=== PATIENT | female | born 1945 | race Caucasian/White ===

== ENCOUNTER → 2020-10-12 09:34 | Outpatient (CLI) | payer MEDICARE, BC, SELFPAY ==
--- NOTE | 2020-10-12 09:42 | XR_ITS ---
PROCEDURE: XR KNEE RT 4V CLINICAL INDICATION: RT knee Pain COMPARISON: No exams were available for comparison FINDINGS: Mild osteoarthritic changes are present at the medial and lateral compartment. There is mild spurring of the tibial spines. There are moderate osteoarthritic changes at the patellofemoral joint. There may be a small suprapatellar effusion. There are 3 calcific densities overlying the proximal tibia slightly medial and are suspect for small loose bodies but could be bone islands in the proximal tibia. IMPRESSION: Osteoarthritic changes as described above. Possible loose bodies overlying the proximal tibial region Dictated by: Roberto Cummins MD 10/12/2020 12:05 Roberto Cummins MD in [place] 10/12/2020 12:05
== END ==
PROVIDERS: PCP Internal Medicine Adolescent Medicine; Visit Provider Orthopaedic Surgery
DX: M25.561 Pain in right knee (principal)
CPT/HCPCS: 73564

== ENCOUNTER → 2020-12-06 10:14 | Outpatient (CLI) | payer MEDICARE, BC, SELFPAY ==
[2020-12-06 10:46] LABS: Basophils % 0.7 % (0.1-2.0); Eosinophils # 0.1 K/mm3 (0.0-0.4); Eosinophils % 2.4 % (0.1-12.0); Hematocrit 37.3 % (37.0-47.0); Hemoglobin 12.6 g/dL (12.2-16.2); Lymphocytes # 1.4 K/mm3 (0.7-4.5); Lymphocytes % 25.3 % (10-50); Mean Corpuscular HGB Conc 33.8 g/dL (31.8-35.4); Mean Corpuscular Hemoglobin 34.4 pg (27.0-31.2); Mean Platelet Volume 7.6 fl (7.4-10.4); Monocytes # 0.4 K/mm3 (0.1-1.0); Monocytes % 8.1 % (1.7-9.3); Neutrophils # 3.4 K/mm3 (1.8-7.8); Neutrophils % 63.5 % (37.0-80.0); Platelet Count 194 K/mm3 (142-424); Red Blood Count 3.66 M/mm3 (4.20-5.40); Red Cell Distribution Width 13.7 % (11.5-17.5); White Blood Count 5.4 K/mm3 (4.8-10.8)
[2020-12-06 11:10] LABS: Alanine Aminotransferase 16 U/L (12-78); Albumin Level 4.4 g/dl (3.5-5.0); Albumin/Globulin Ratio 1.6 (1.1-1.8); Alkaline Phosphatase 80 U/L (38-126); Anion Gap 12.7 mEq/L (5-15); Aspartate Amino Transferase 27 U/L (14-36); Blood Urea Nitrogen 14 mg/dl (7-17); Calcium 9.8 mg/dl (8.4-10.2); Carbon Dioxide 27 mmol/L (22.0-30.0); Chloride 107 mmol/L (98-107); Chol/HDL Ratio 4.1 (1-3.5); Cholesterol 249 mg/dl (140-200); Estimated Glomerular Filt Rate 61 ml/min (>60); GFR (African American) 74 ML/MIN (>60); Globulin 2.7 g/dL (1.3-3.2); Glucose 103 mg/dl (74-100); HDL Cholesterol 61 mg/dl (40-60); Potassium 4.7 mmoL/L (3.5-5.1); Sodium 142 mmol/L (136-145); Total Protein,Serum 7.1 g/dl (6.3-8.2); Triglycerides 159 mg/dl (30-150); VLDL Cholesterol 32 mg/dL (0-40)
[2020-12-06 11:21] LABS: Direct LDL Cholesterol 130.53 mg/dL (100-129)
[2020-12-06 11:41] LABS: Thyroid Stimulating Hormone 0.98 uIU/mL (0.465-4.68)
[2020-12-06 11:59] LABS: Vitamin B12 336 pg/mL (239-931)
[2020-12-06 13:10] LABS: Hemoglobin A1C 5.4 % (4.0-6.0)
== END ==
PROVIDERS: Visit Provider Internal Medicine Adolescent Medicine
DX: Z00.00 Encounter for general adult medical examination without abnormal findings (principal); E78.5 Hyperlipidemia, unspecified; R53.81 Other malaise; R53.83 Other fatigue
CPT/HCPCS: 36415; 80053; 80061; 82607; 83036; 84443; 85025

== ENCOUNTER → 2021-07-18 12:30 | Outpatient (CLI) | payer MEDICARE, BC, SELFPAY ==
--- NOTE | 2021-07-18 12:35 | CT_ITS ---
FINAL REPORT CLINICAL HISTORY: COUGH,WEIGHT LOSS,NIGHT SWEATS FINDINGS: Axial CT images of the chest were obtained with contrast. Coronal reformatted images were also obtained. This study was performed with techniques to keep radiation doses as low as reasonably achievable, (ALARA). Individualized dose reduction techniques using automated exposure control or adjustment of mA and/or KV according to the patient's size were employed. There is no evidence of mediastinal or hilar mass or adenopathy.No axillary mass or adenopathy is identified. On lung window images, no pulmonary mass or dominant pulmonary nodule is identified. There is mild scarring in the lung bases. No localized pulmonary inflammatory process is identified. Limited images of the upper abdomen reveal mild gallbladder wall thickening. There are gallstones in the gallbladder. There is a 23 mm cyst in the liver dome. IMPRESSION: Mild scarring in the lung bases. Gallstones of the gallbladder. 23 mm liver dome cyst. Reviewed, Interpreted and Dictated by Jm Simmons III, MD Transcribed by Lori Lira Authenticated by Jm Simmons III, MD on 07/18/2021 02:33:40 PM [facility]
== END ==
PROVIDERS: PCP Internal Medicine Adolescent Medicine; Visit Provider Internal Medicine Adolescent Medicine
DX: R05.9 Cough, unspecified (principal); R63.4 Abnormal weight loss; R61 Generalized hyperhidrosis
CPT/HCPCS: 71260; Q9967